=== PATIENT | female | born 1945 | race Two or more races ===

== ENCOUNTER → 2025-01-21 | Day surgery (SDC) | payer MEDICARE ==
[2025-01-19 11:35] LABS: Hematocrit 37.9 % (36.0-46.0); Hemoglobin 12.7 g/dL (12.2-16.2); Mean Corpuscular Hemoglobin 28.3 pg (28.0-32.0); Mean Corpuscular Volume 84.3 fL (80.0-100.0); Nucleated Red Blood Cells % 0.0 %
[2025-01-19 11:38] LABS: INR 0.98 (0.9-1.15); Partial Thromboplastin Time 25.9 SEC (24.5-34.5); Prothrombin Time 10.4 sec (9.3-11.8)
[2025-01-19 11:45] LABS: Albumin 4.7 g/dL (3.2-4.8); Alkaline Phosphatase 51 U/L (46-116); Anion Gap 7 (5-15); BUN/Creatinine Ratio 13.2 (10.0-20.0); Bilirubin, Total 0.6 mg/dL (0.2-1.0); Blood Urea Nitrogen 10 mg/dL (9-23); Calcium 9.7 mg/dL (8.7-10.4); Carbon Dioxide 26 mmol/L (20-31); Glucose 94 mg/dL (74-106); Potassium 3.9 mmol/L (3.5-5.1); Sodium 140 mmol/L (136-145); Total Protein 6.7 g/dL (5.7-8.2)
[2025-01-19 11:51] LABS: Alanine Aminotransferase < 9 U/L (7-40); Chloride 107 mmol/L (98-107)
[2025-01-19 12:22] LABS: Urine Protein, UAD Negative (Negative)
[~2025-01-21] VITALS: Ht 165.1 cm; Wt 70.3 kg
[~2025-01-21] MED LIST: ALEN35TA18 PO; ALPR0.5T PO; AML5T PO; EZET10TA22 PO; GLYCOPYRROLATE 0.2 MG/ML 1ML VIAL ONE; HYDR-4072 PO; METO25TA36 PO; MIDAZOLAM HCL 2MG/2ML 2ml VIAL (1mg/ml) ONE; ONDANSETRON HCL 4 MG/2 ML VIAL ONE; PREG50CA PO; PROPOFOL 10 MG/ML 20 ML IV ONE; ROSU20TA14 PO; SERT100T PO; SILD20TA PO; VALA1TAB PO; ZOLM5TAB33 PO
--- NOTE | 2025-01-21 09:47 | DVHHP2 ---
GI H&P Pre-Op Assessment Date: 01/21/25 Chief complaint: Diarrhea, positive Cologuard test HPI: per clinic note Past medical history: per clinic note Past surgical history: per clinic note Family history: per clinic note Physical exam: General: NAD, AAOX3 HEENT: PERRL, no scleral icterus, normal hearing, gums without lesions or bleeding, oropharynx clear without erythema or exudate. Neck: Supple without enlargement of the thyroid, or lymphadenopathy. Chest: Normal size and shape, no tenderness, lung obando clear to auscultation and percussion, nonlabored breathing. Heart: RRR, no murmur Abdomen: non-distended, no tenderness to palpation, +BS, no hepatosplenomegaly Extremities: no edema Neurological: CN II-XII intact, sensation intact in all extremities, 5+ strength in all extremities Skin: No rashes, No jaundice Assessment: - Diarrhea, positive Cologuard test Plan: - Colonoscopy - Risks (bleeding, infection, perforation, reaction to sedation medications and cardiopulmonary arrest) and benefit of the procedure were explained to patient. Patient agrees to undergo the procedure. JOSE G MALONE MD Jan 21, 2025 09:46
[2025-01-21 10:13] VITALS: PULSE 75; RESP 14; TEMP 97.1; O2SAT 99
--- NOTE | 2025-01-21 10:14 | DVHOP2 ---
Operative Report DATE OF OPERATION: 01/21/25 PROCEDURE: Colonoscopy. PREOPERATIVE INDICATION: The patient is a 79 -year-old female undergoing colonoscopy for positive Cologuard test and diarrhea. POSTOPERATIVE DIAGNOSES: 1. Diverticulosis in the left colon. 2. Random colon cold biopsies were obtained to evaluate for microscopic colitis PROCEDURE PERFORMED BY: Otis Calvillo M.D. SCOPE: Olympus videocolonoscope. ASA CLASS: 3 PREOPERATIVE MEDICATIONS: MAC with Dr Cox PROCEDURE IN DETAIL: After obtaining an informed consent, the patient was placed on left lateral decubitus position. She was then sedated with the above medications. A rectal examination was performed that was normal. The colonoscope was then passed through the anus into the rectosigmoid and through the descending, transverse, and ascending colon up to the cecum with v isualization of the appendiceal orifice, base of the cecum and the ileocecal valve. No mass or polyp was observed. There was diverticulosis in the left colon. Random colon biopsy obtained to evaluate for microscopic colitis. The colonoscope was then withdrawn. The patient tolerated the procedure well without difficulty. WITHDRAWAL TIME: 6 minutes QUALITY OF THE PREP: [place] Bowel Prep score: 6 COMPLICATIONS : None SPECIMENS: Random colon biopsies DISPOSITION: D/C to home PLAN: 1. Await for biopsy result OTIS CALVILLO MD Jan 21, 2025 10:14
--- NOTE | 2025-01-21 10:15 | DVHDS2 ---
Physician Discharge Progress N Final Diagnosis: Diverticulosis Operations or Procedures: Operations or Procedures Colonoscopy with cold biopsies Condition on Discharge: Good Disposition: Home Discharge Instructions: Diet: Regular Activity: No Restrictions, As Tolerated Medications: Resume with previous home medications Follow Up Care: Discharge Statement: "Patient was advised to return to the ER or call 911 if any headaches, dizziness, shortness of breath, chest pain, abdominal pain, bleeding, fevers, or worsening of medical condition. Patient was counseled about treatment plan, medications, possible side effects, patientverbalized understanding. All questions were answered to the best of my ability. This discharge took greater then 30 minutes in planning, reviewing d ocumentation, counseling the patient, and discussing with other team members." JOSE G MALONE MD Jan 21, 2025 10:15
[2025-01-21 10:45] VITALS: BP 132/71; PULSE 76; RESP 17; O2SAT 93
== END | disposition home or self-care (01) ==
LOC: GI 09:27
PROVIDERS: ATTEND Internal Medicine Gastroenterology
DX: R19.5 Other fecal abnormalities (principal); K57.30 Diverticulosis of large intestine without perforation or abscess without bleeding; K63.89 Other specified diseases of intestine; R19.7 Diarrhea, unspecified; I10 Essential (primary) hypertension; I27.20 Pulmonary hypertension, unspecified; E11.9 Type 2 diabetes mellitus without complications; E78.5 Hyperlipidemia, unspecified; M81.0 Age-related osteoporosis without current pathological fracture; G89.29 Other chronic pain; G43.909 Migraine, unspecified, not intractable, without status migrainosus; F41.8 Other specified anxiety disorders; Z79.899 Other long term (current) drug therapy; Z90.49 Acquired absence of other specified parts of digestive tract; Z90.89 Acquired absence of other organs; Z90.710 Acquired absence of both cervix and uterus; Z86.2 Personal history of diseases of the blood and blood-forming organs and certain disorders involving the immune mechanism
CPT/HCPCS: 36415; 45380; 80053; 81001; 85025; 85610; 85730; 88305; J2250; J2405; J2704; J7030